=== PATIENT | female | born 1975 | race Caucasian/White ===

== ENCOUNTER 2018-07-18 22:00 | Emergency (ER) | payer MEDICARE, MEDICAID ==
[~2018-07-18] VITALS: Ht 165.1 cm; Wt 103.9 kg
[~2018-07-18 22:00] MED LIST: CLON-528 PO; FLUT16SP2 BOTHNARES; GUAI120015 PO; HYDR-4383 PO; PSEU-259 PO
[2018-07-18 22:10] VITALS: BP 105/81
[2018-07-18] MEDS ORDERED: BACI28OI9 TP (22:44)
[2018-07-18] MEDS ORDERED: bacitracin 15gm ointment TP ONE (22:45)
== END 2018-07-18 22:59 | disposition home or self-care (01) ==
LOC: ER 22:01
DX: T21.21XA Burn of second degree of chest wall, initial encounter (principal); R62.50 Unspecified lack of expected normal physiological development in childhood; Z98.890 Other specified postprocedural states; Z95.0 Presence of cardiac pacemaker; Z88.2 Allergy status to sulfonamides; Z88.6 Allergy status to analgesic agent; Z88.5 Allergy status to narcotic agent; Z79.899 Other long term (current) drug therapy; X11.0XXA Contact with hot water in bath or tub, initial encounter; Y93.89 Activity, other specified; Y92.89 Other specified places as the place of occurrence of the external cause; Y99.9 Unspecified external cause status
CPT/HCPCS: 16020; 99284

== ENCOUNTER 2019-01-16 13:37 | Emergency (ER) | payer MEDICARE, MEDICAID ==
[~2019-01-16] VITALS: Ht 152.4 cm; Wt 98.7 kg
[~2019-01-16 13:37] MED LIST changes: +BACI28OI9 TP
[2019-01-16 14:01] VITALS: BP 156/93
[2019-01-16] MEDS ORDERED: CLIN300C70 PO (15:23)
[2019-01-16] MEDS ORDERED: IBUP-1984 PO (15:23)
[2019-01-16] MEDS ORDERED: ketorolac tromethamine 15mg/ml inj. IM ONE (15:25)
== END 2019-01-16 15:51 | disposition home or self-care (01) ==
LOC: ER 13:37
DX: K02.9 Dental caries, unspecified (principal); Z88.2 Allergy status to sulfonamides; Z88.6 Allergy status to analgesic agent; Z88.5 Allergy status to narcotic agent; Z79.2 Long term (current) use of antibiotics; Z79.899 Other long term (current) drug therapy; Z98.890 Other specified postprocedural states; Z95.0 Presence of cardiac pacemaker
CPT/HCPCS: 96372; 99283; J1885

== ENCOUNTER 2020-04-06 15:14 | Emergency (ER) | payer MEDICARE, MEDICAID ==
[~2020-04-06] VITALS: Ht 162.6 cm; Wt 105.0 kg
[2020-04-06 17:17] LABS: CLARITY,URINE CLOUDY (Clear); COLOR,URINE YELLOW (Yellow); GLUCOSE, URINE NEGATIVE (Neg); KETONES,URINE NEGATIVE (Neg); LEUKOCYTE ESTERASE ,URINE NEGATIVE (Neg); NITRITES, URINE NEGATIVE (Neg); OCCULT BLOOD,URINE TRACE-LYSED (Neg); PH,URINE 5.5 (4.8-8.0); PROTEIN,URINE NEGATIVE (Neg); UROBILINOGEN,URINE 0.2 E.U/dL (0.2-1.0)
[2020-04-06 17:18] LABS: UA COLLECTION TYPE CLN CATCH MIDSTREAM; URINE HCG NEGATIVE (NEG)
[2020-04-06 17:24] LABS: MUCUS STRANDS MANY /LPF (Neg); SQUAMOUS EPITHELIAL CELL,UR MANY /LPF (FEW)
[2020-04-06 17:28] LABS: BACTERIA,URINE FEW /HPF (Neg); RBC,URINE 0-2 /HPF (0-2); TRANSITIONAL EPI CELLS,URINE FEW /HPF; WBC,URINE 0-4 /HPF (0-4)
[2020-04-06] MEDS ORDERED: ketorolac trometh. 30mg/ml inj. IM ONE (17:35)
[2020-04-06] MEDS ORDERED: cyclobenzaprine 10mg tablet PO ONE (17:35)
[2020-04-06] MEDS ORDERED: CYCL-1 PO (17:36)
[2020-04-06 17:54] VITALS: BP 131/93
== END 2020-04-06 17:55 | disposition home or self-care (01) ==
LOC: ER 15:15
DX: S39.012A Strain of muscle, fascia and tendon of lower back, initial encounter (principal); E11.9 Type 2 diabetes mellitus without complications; G47.30 Sleep apnea, unspecified; Z86.69 Personal history of other diseases of the nervous system and sense organs; Z95.0 Presence of cardiac pacemaker; Z98.890 Other specified postprocedural states; Z88.2 Allergy status to sulfonamides; Z88.0 Allergy status to penicillin; Z88.8 Allergy status to other drugs, medicaments and biological substances; Z79.899 Other long term (current) drug therapy; X58.XXXA Exposure to other specified factors, initial encounter; Y93.89 Activity, other specified; Y92.89 Other specified places as the place of occurrence of the external cause; Y99.8 Other external cause status
CPT/HCPCS: 81001; 81025; 96372; 99283; J1885

== ENCOUNTER 2020-05-18 10:18 | Emergency (ER) | payer MEDICARE, MEDICAID ==
[~2020-05-18] VITALS: Ht 152.4 cm; Wt 102.7 kg
[~2020-05-18 10:18] MED LIST changes: +CYCL-1 PO
[2020-05-18 12:04] LABS: BASOPHILS # (AUTO) 0.1 X10'3 (0-0.2); BASOPHILS % (AUTO) 0.6 % (0-1); EOSINOPHILS # (AUTO) 0.1 X10'3 (0-0.9); EOSINOPHILS % (AUTO) 0.8 % (0-6); HEMATOCRIT 38.8 % (35.0-45.0); HEMOGLOBIN 12.8 g/dl (12.0-16.0); LYMPHOCYTES % (AUTO) 21.4 % (21-51); MEAN CORPUSCULAR HEMOGLOBIN 30.3 PG (27.0-31.0); MEAN CORPUSCULAR VOLUME 91.8 FL (78-98); MEAN PLATELET VOLUME 9.6 FL (7.4-10.4); MONOCYTES # (AUTO) 0.4 X10'3 (0-0.9); NEUTROPHILS # (AUTO) 6.9 X10'3 (1.8-7.7); NEUTROPHILS % (AUTO) 73.2 % (42-75); PLATELET COUNT 276 X10'3 (140-440); RED BLOOD COUNT 4.22 X10'6 (4.20-5.60); RED CELL DISTRIBUTION WIDTH 13.8 % (11.5-14.5); WHITE BLOOD COUNT 9.5 X10'3 (4.5-11.0)
[2020-05-18 12:21] LABS: ALANINE AMINOTRANSFERASE 27 U/L (12-78); ALBUMIN 3.5 G/DL (3.4-5.0); ALBUMIN/GLOBULIN RATIO 0.9 (1.1-1.5); ALKALINE PHOSPHATASE 89 IU/L (46-116); ANION GAP 8 (8-16); ASPARTATE AMINO TRANSFERASE 16 U/L (10-37); BILIRUBIN,TOTAL 0.2 MG/DL (0.1-1.0); BLOOD UREA NITROGEN 14 MG/DL (7-18); BUN/CREATININE RATIO 21.5 (6.6-38.0); CHLORIDE 106 MMOL/L (99-107); CREATININE 0.65 MG/DL (0.40-0.90); GLUCOSE 100 MG/DL (70-104); POTASSIUM 3.9 MMOL/L (3.5-5.1); SODIUM 143 MMOL/L (135-145); TOTAL CARBON DIOXIDE 29.5 MMOL/L (24-32); TOTAL PROTEIN 7.3 G/DL (6.4-8.2); eGFR > 90 ML/MIN
[2020-05-18 13:11] LABS: CLARITY,URINE CLOUDY (Clear); COLOR,URINE YELLOW (Yellow); GLUCOSE, URINE NEGATIVE (Neg); KETONES,URINE NEGATIVE (Neg); LEUKOCYTE ESTERASE ,URINE NEGATIVE (Neg); NITRITES, URINE NEGATIVE (Neg); OCCULT BLOOD,URINE NEGATIVE (Neg); PH,URINE 5.5 (4.8-8.0); PROTEIN,URINE TRACE mg/dl (Neg); UA COLLECTION TYPE STRAIGHT CATH; UROBILINOGEN,URINE 0.2 E.U/dL (0.2-1.0)
[2020-05-18 13:20] LABS: MUCUS STRANDS MANY /LPF (Neg); SQUAMOUS EPITHELIAL CELL,UR MANY /LPF (FEW)
[2020-05-18 13:21] LABS: BACTERIA,URINE FEW /HPF (Neg); RBC,URINE 0-2 /HPF (0-2); WBC CLUMPS,URINE FEW /HPF (NEGATIVE)
[2020-05-18] MEDS ORDERED: HYDR-4353 PO (13:43)
[2020-05-18] MEDS ORDERED: morphine 4 MG/ML inj SYRINge IM ONE (13:45)
[2020-05-18 14:16] VITALS: BP 116/53
== END 2020-05-18 14:18 | disposition home or self-care (01) ==
LOC: ER 10:19
DX: G89.29 Other chronic pain (principal); R10.2 Pelvic and perineal pain; R10.9 Unspecified abdominal pain; R30.0 Dysuria; I10 Essential (primary) hypertension; G47.30 Sleep apnea, unspecified; E11.9 Type 2 diabetes mellitus without complications; Z86.69 Personal history of other diseases of the nervous system and sense organs; Z98.890 Other specified postprocedural states; Z88.2 Allergy status to sulfonamides; Z88.6 Allergy status to analgesic agent; Z88.5 Allergy status to narcotic agent; Z79.899 Other long term (current) drug therapy
CPT/HCPCS: 36415; 80053; 81001; 85025; 87088; 96372; 99283; J2270

== ENCOUNTER 2021-07-19 10:30 | Day surgery (SDC) | payer MEDICARE, OTHER, MEDICAID ==
[2021-07-11 15:26] LABS: BASOPHILS % (AUTO) 0.2 % (0-1); EOSINOPHILS # (AUTO) 0.2 X10'3 (0-0.9); EOSINOPHILS % (AUTO) 1.4 % (0-6); LYMPHOCYTES # (AUTO) 2.4 X10'3 (1.1-4.8); LYMPHOCYTES % (AUTO) 20.6 % (21-51); MEAN CORPUSCULAR HEMOGLOBIN 30.5 PG (27.0-31.0); MEAN CORPUSCULAR HGB CONC 32.6 g/dL (33.0-36.5); MEAN CORPUSCULAR VOLUME 93.6 FL (78-98); MEAN PLATELET VOLUME 8.6 FL (7.4-10.4); MONOCYTES # (AUTO) 0.6 X10'3 (0-0.9); MONOCYTES % (AUTO) 5.3 % (2-12); NEUTROPHILS # (AUTO) 8.4 X10'3 (1.8-7.7); NEUTROPHILS % (AUTO) 72.5 % (42-75); PRE OP HEMATOCRIT 38.9 % (35.0-45.0); PRE OP HEMOGLOBIN 12.7 g/dL (12.0-16.0); PRE OP PLATELET COUNT 313 X10'3 (140-440); RED BLOOD COUNT 4.15 X10'6 (4.20-5.60); RED CELL DISTRIBUTION WIDTH 13.5 % (11.5-14.5)
[2021-07-11 15:37] LABS: CLARITY,URINE CLEAR (Clear); COLOR,URINE YELLOW (Yellow); GLUCOSE, URINE NEGATIVE (Neg); KETONES,URINE NEGATIVE (Neg); LEUKOCYTE ESTERASE ,URINE NEGATIVE (Neg); NITRITES, URINE NEGATIVE (Neg); OCCULT BLOOD,URINE NEGATIVE (Neg); PROTEIN,URINE NEGATIVE (Neg); UA COLLECTION TYPE CLN CATCH MIDSTREAM; UROBILINOGEN,URINE 0.2 E.U/dL (0.2-1.0)
[2021-07-11 15:47] LABS: HCG SERUM QL NEGATIVE
[2021-07-11 15:56] LABS: ALBUMIN 3.4 G/DL (3.4-5.0); ALBUMIN/GLOBULIN RATIO 0.8 (1.1-1.5); ALKALINE PHOSPHATASE 111 IU/L (46-116); BLOOD UREA NITROGEN 25 MG/DL (7-18); BUN/CREATININE RATIO 36.2 (6.6-38.0); CALCIUM 8.8 MG/DL (8.5-10.1); CHLORIDE 106 MMOL/L (99-107); CREATININE 0.69 MG/DL (0.40-0.90); PRE OP ALT 30 U/L (30-65); PRE OP ANION GAP 9 (8-16); PRE OP AST 15 U/L (10-37); PRE OP BILIRUB, TOTAL 0.2 MG/DL (0.0-1.0); PRE OP GLUCOSE 110 MG/DL (70-104); PRE OP SODIUM 142 MMOL/L (135-145); TOTAL CARBON DIOXIDE 26.7 MMOL/L (24-32); TOTAL PROTEIN 7.6 G/DL (6.4-8.2); eGFR > 90 ML/MIN
[~2021-07-19] VITALS: Ht 152.4 cm; Wt 92.5 kg
[2021-07-19] VITALS (20 sets, daily range): BP systolic 118–147; BP diastolic 75–102
[~2021-07-19 10:30] MED LIST changes: +ACET325T58 PO; +ALBU18HF2 INH; -BACI28OI9 TP; +BUPIVAcaine/PF 2.5 mg/ml (0.25%) 30ml vial ONE; +CARB100C9 PO; +CHOL100017 PO; -CLON-528 PO; -CYCL-1 PO; -FLUT16SP2 BOTHNARES; +GENTAMICIN IV ONE; -GUAI120015 PO; -HYDR-4383 PO; +HYDR28CR14 TOP; +HYDROcodone/acetaminophen 10/325mg tab PO PRN; +IBUP-1984 PO; +LEVE500T PO; +LIDOcaine 2% (20mg/ml) 5ml vial ONE; +LISI2.5T14 PO; +LORazepam 1 MG tablet PO PRN; +LORazepam 2 mg/ml vial IV PRN; +MELA10TA PO; +NORMAL SALINE IV ONE; +NORT25CA PO; +PANT20TA18 PO; -PSEU-259 PO; +TRAZ-256 PO; +ZALE10CA PO; +acetaminophen 1,000mg/100ml IV 100 ML IV ONE; +clindamycin phosphate 40gm vag cream ONE; +clindamycin-Cleocin 900mg/D5W 50 ML IV ONE; +dexamethasone sod phosphate 4mg/ml inj. ONE; +diphenhydrAMINE 50 mg/ml inj IV PRN; +epiNEPHrine 1 mg/ml inj ONE; +famotidine 20mg tablet PO ONE; +fentaNYL /PF 50mcg/ml 5ml ampule ONE; +fluoroscein sod 10% (100mg/ml) 5ml vial ONE; +glycopyrrolate 0.2mg/ml inj ONE; +ketorolac trometh. 30mg/ml inj. IV PRN; +magnesium hydroxide 30ml (MOM) UD suspension PO PRN; +meperidine/PF 25mg/ml syringe IV PRN; +midazolam 1 mg/ML 2ml injection ONE; +morphine 4 MG/ML inj SYRINge IV PRN; +neomy sulf/polymyxin B sulf. GU irrigation 1ml amp IR ONE; +neostigmine methylsulfate 1 MG/ML 10ml vial ONE; +normal saline 500ml IV soln 500 ML IV PRN; +ondansetron/PF 4mg/2ml inj IV PRN; +ondansetron/PF 4mg/2ml inj ONE; +proCHLORperazine 10 MG/2 ml inj IV PRN; +ringers solution, lacted 1,000 ML IV SCH; +rocuronium 10mg/ml inj IV ONE; +temazepam 15mg capsule PO PRN; +vasoPRESSIN 20 units/ml inj. ONE
[2021-07-19] MEDS: ringers solution, lacted 1,000 ML IV SCH ×2 (10:30→18:30)
--- NOTE | 2021-07-19 10:36 | NUR ---
Received from OR via BED, accompanied by Anesthesiologist DR. BABIN and report given by Anesthesiolgist AND OR NURSE. PT ARRIVED DROWSY ON 10L WITH MASK. 4 INCISION SITES GLUED SHUT WITH MINIMAL DRAINAGE. PHELAN CATHETER NOTED WITH YELLOW URINE. 20G IV TO LEFT AC RUNNING WITH LR AT 100ML/HR. VSS. NO ACUTE DISTRESS NOTED. Addendum: 07/19/21 at 1102 by Rae Moses RN Amended: Links added.
[2021-07-19] MEDS ORDERED: meperidine/PF 25mg/ml syringe ONE (10:38)
[2021-07-19] MEDS: morphine 2 MG/ML inj. syringe IV PRN ×2 (11:52→12:04)
--- NOTE | 2021-07-19 12:36 | NUR ---
Report called to receiving nurse. ALL QUESTIONS ANSWERED TO ACCEPTING RN. Transferred via BED, Belongings, CELL PHONE, GLASSES, AND CLOTHING SENT TO ROOM WITH PT. Special Issues communicated to receiving nurse. VSS. PT MET PACU D/C CRITERIA. INCISION SITES UNCHANGED. BED LOW, CALL LIGHT PRESENT AND 2 RAILS UP. NURSE AID PRESENT. Addendum: 07/19/21 at 1245 by Rae Moses RN Amended: Links added.
[2021-07-19] MEDS ORDERED: diphenhydrAMINE 25mg capsule PO ONE (17:00)
--- NOTE | 2021-07-19 17:01 | NUR ---
Called Ángel. Pt. c/o red itchy and tearful right eye. See new orders
[2021-07-19] MEDS ORDERED: ibuprofen tablet 400 MG TABLET PO PRN (17:25)
[2021-07-19] MEDS ORDERED: ondansetron 4mg rapidly disintigrating tab PO PRN (17:25)
[2021-07-19] MEDS ORDERED: hydrocortisone 1% cream 28gm TP PRN (17:30)
[2021-07-19] MEDS ORDERED: zolpidem 5mg tablet PO PRN (17:30)
[2021-07-19] MEDS ORDERED: albuterol 2.5 MG/3 ML nebule NEB PRN (17:35)
--- NOTE | 2021-07-19 18:35 | NUR ---
Gave report to Angie garcia RN.
[2021-07-19] MEDS ORDERED: traZODone 50mg tablet PO SCH (21:00)
[2021-07-19] MEDS: nortriptyline 25mg capsule PO SCH ×2 (21:00→23:29)
[2021-07-19] MEDS ORDERED: carbamazepine 100mg ER CAPSULE (12-hour) PO SCH (21:00)
[2021-07-19] MEDS ORDERED: Melatonin 3mg tablet PO SCH (21:00)
[2021-07-19] MEDS: metoclopramide 5 mg/ml inj IV PRN (22:10)
[2021-07-19] MEDS: levetiracetam 250mg tablet PO SCH (23:28)
[2021-07-19] MEDS: docusate sod 100mg capsule PO SCH (23:28)
--- NOTE | 2021-07-19 23:43 | NUR ---
Patients nortriptyline held. Patient stated she had the med in the am.
[2021-07-20] MEDS: HYDROcodone/acetaminophen 10/325mg tab PO PRN ×2 (02:21→08:43)
--- NOTE | 2021-07-20 05:56 | NUR ---
Pt. jose de jesus d/c @ 3659, Pt. due to void
[2021-07-20 07:36] LABS: BASOPHILS % (AUTO) 0.2 % (0-1); EOSINOPHILS % (AUTO) 0.3 % (0-6); HEMATOCRIT 35.2 % (35.0-45.0); HEMOGLOBIN 11.6 g/dl (12.0-16.0); LYMPHOCYTES # (AUTO) 1.5 X10'3 (1.1-4.8); LYMPHOCYTES % (AUTO) 11.2 % (21-51); MEAN CORPUSCULAR HEMOGLOBIN 30.9 PG (27.0-31.0); MEAN CORPUSCULAR VOLUME 93.7 FL (78-98); MEAN PLATELET VOLUME 9.1 FL (7.4-10.4); MONOCYTES # (AUTO) 0.9 X10'3 (0-0.9); MONOCYTES % (AUTO) 7.2 % (2-12); NEUTROPHILS # (AUTO) 10.5 X10'3 (1.8-7.7); NEUTROPHILS % (AUTO) 81.1 % (42-75); PLATELET COUNT 296 X10'3 (140-440); RED BLOOD COUNT 3.75 X10'6 (4.20-5.60); RED CELL DISTRIBUTION WIDTH 13.4 % (11.5-14.5); WHITE BLOOD COUNT 12.9 X10'3 (4.5-11.0)
[2021-07-20 07:50] LABS: ALBUMIN 2.8 G/DL (3.4-5.0); ANION GAP 8 (8-16); BLOOD UREA NITROGEN 15 MG/DL (7-18); BUN/CREATININE RATIO 27.3 (6.6-38.0); CALCIUM 8.2 MG/DL (8.5-10.1); CHLORIDE 105 MMOL/L (99-107); CREATININE 0.55 MG/DL (0.40-0.90); GLUCOSE 139 MG/DL (70-104); POTASSIUM 3.6 MMOL/L (3.5-5.1); SODIUM 140 MMOL/L (135-145); eGFR > 90 ML/MIN
[2021-07-20 08:00] VITALS: BP 112/68
[2021-07-20] MEDS ORDERED: lisinopril 2.5mg tablet PO SCH (08:00)
[2021-07-20] MEDS ORDERED: cholecalciferol (vitamin D3) 1,000 unit (25mcg) tablet PO SCH (08:00)
[2021-07-20] MEDS ORDERED: enoxaparin 40mg/0.4ml syringe SQ SCH (08:00)
[2021-07-20] MEDS ORDERED: pantoprazole 40mg Tablet.DR PO SCH (08:00)
[2021-07-20] MEDS: docusate sod 100mg capsule PO SCH (08:41)
[2021-07-20] MEDS: levetiracetam 250mg tablet PO SCH (08:41)
[2021-07-20] MEDS: metoclopramide 5 mg/ml inj IV PRN ×2 (08:44→09:19)
[2021-07-20 11:00] VITALS: BP 113/69
== END 2021-07-20 14:08 | disposition home or self-care (01) ==
LOC: PAS 10:30 → SUR 3N 10:30 → PAS 07-20 14:08
PROVIDERS: ATTEND Obstetrics & Gynecology Obstetrics
DX: N93.8 Other specified abnormal uterine and vaginal bleeding (principal); N85.8 Other specified noninflammatory disorders of uterus; N80.0 Endometriosis of uterus; N73.6 Female pelvic peritoneal adhesions (postinfective); J45.909 Unspecified asthma, uncomplicated; G47.33 Obstructive sleep apnea (adult) (pediatric); I10 Essential (primary) hypertension; G43.909 Migraine, unspecified, not intractable, without status migrainosus; K21.9 Gastro-esophageal reflux disease without esophagitis; E66.9 Obesity, unspecified; Z68.41 Body mass index [BMI] 40.0-44.9, adult; Z20.822 Contact with and (suspected) exposure to COVID-19; Z79.899 Other long term (current) drug therapy; Z88.2 Allergy status to sulfonamides; Z88.8 Allergy status to other drugs, medicaments and biological substances; Z98.890 Other specified postprocedural states
CPT/HCPCS: 36415; 58552; 71045; 80048; 80053; 81003; 82948; 84703; 85025; 86885; 86900; 86901; 87081; J0131; J0171; J1100; J1580; J1885; J2001; J2175; J2250; J2270; J2405; J2710; J2765; J3010; J3490; J7120; Q0163; U0003; U0005; Z7506; Z7508; Z7512; 88307; A4314; A4618; A7000; G0378; J1650

== ENCOUNTER 2021-11-18 18:22 | Emergency (ER) | payer MEDICARE, OTHER, MEDICAID ==
[~2021-11-18] VITALS: Ht 152.4 cm; Wt 94.5 kg
[~2021-11-18 18:22] MED LIST changes: -ACET325T58 PO; -BUPIVAcaine/PF 2.5 mg/ml (0.25%) 30ml vial ONE; -GENTAMICIN IV ONE; -HYDROcodone/acetaminophen 10/325mg tab PO PRN; -LIDOcaine 2% (20mg/ml) 5ml vial ONE; -LORazepam 1 MG tablet PO PRN; -LORazepam 2 mg/ml vial IV PRN; -NORMAL SALINE IV ONE; -acetaminophen 1,000mg/100ml IV 100 ML IV ONE; -clindamycin phosphate 40gm vag cream ONE; -clindamycin-Cleocin 900mg/D5W 50 ML IV ONE; -dexamethasone sod phosphate 4mg/ml inj. ONE; -diphenhydrAMINE 50 mg/ml inj IV PRN; -epiNEPHrine 1 mg/ml inj ONE; -famotidine 20mg tablet PO ONE; -fentaNYL /PF 50mcg/ml 5ml ampule ONE; -fluoroscein sod 10% (100mg/ml) 5ml vial ONE; -glycopyrrolate 0.2mg/ml inj ONE; -ketorolac trometh. 30mg/ml inj. IV PRN; -magnesium hydroxide 30ml (MOM) UD suspension PO PRN; -meperidine/PF 25mg/ml syringe IV PRN; -midazolam 1 mg/ML 2ml injection ONE; -morphine 4 MG/ML inj SYRINge IV PRN; -neomy sulf/polymyxin B sulf. GU irrigation 1ml amp IR ONE; -neostigmine methylsulfate 1 MG/ML 10ml vial ONE; -normal saline 500ml IV soln 500 ML IV PRN; -ondansetron/PF 4mg/2ml inj IV PRN; -ondansetron/PF 4mg/2ml inj ONE; -proCHLORperazine 10 MG/2 ml inj IV PRN; -ringers solution, lacted 1,000 ML IV SCH; -rocuronium 10mg/ml inj IV ONE; -temazepam 15mg capsule PO PRN; -vasoPRESSIN 20 units/ml inj. ONE
[2021-11-18 18:52] VITALS: BP 165/85
== END 2021-11-18 20:47 | disposition home or self-care (01) ==
LOC: ER 18:23
DX: L98.9 Disorder of the skin and subcutaneous tissue, unspecified (principal); N39.498 Other specified urinary incontinence; I10 Essential (primary) hypertension; G47.00 Insomnia, unspecified; E11.9 Type 2 diabetes mellitus without complications; G80.9 Cerebral palsy, unspecified; Z90.710 Acquired absence of both cervix and uterus; Z95.0 Presence of cardiac pacemaker; Z88.2 Allergy status to sulfonamides; Z88.6 Allergy status to analgesic agent; Z79.899 Other long term (current) drug therapy
CPT/HCPCS: 51702; 99282; 99284

== ENCOUNTER 2021-11-22 09:48 | Emergency (ER) | payer MEDICARE, OTHER, MEDICAID ==
[~2021-11-22] VITALS: Ht 152.4 cm; Wt 9.4 kg
--- NOTE | 2021-11-22 11:18 | NUR ---
dela cruz cath replaced with 16fr, leg bag attached. urinal provided.
== END 2021-11-22 11:15 | disposition home or self-care (01) ==
LOC: ER 09:49
DX: T83.031A Leakage of indwelling urethral catheter, initial encounter (principal); I10 Essential (primary) hypertension; E11.9 Type 2 diabetes mellitus without complications; Z86.69 Personal history of other diseases of the nervous system and sense organs; Z90.710 Acquired absence of both cervix and uterus; Z95.0 Presence of cardiac pacemaker; Z98.890 Other specified postprocedural states; Z88.2 Allergy status to sulfonamides; Z88.5 Allergy status to narcotic agent; Z88.8 Allergy status to other drugs, medicaments and biological substances; Z79.899 Other long term (current) drug therapy; Y84.6 Urinary catheterization as the cause of abnormal reaction of the patient, or of later complication, without mention of misadventure at the time of the procedure
CPT/HCPCS: 99281

== ENCOUNTER 2021-11-25 13:26 | Emergency (ER) | payer MEDICARE, OTHER, MEDICAID ==
[~2021-11-25] VITALS: Ht 152.4 cm; Wt 94.1 kg
[2021-11-25 13:32] VITALS: BP 124/69
[2021-11-25 14:36] LABS: CLARITY,URINE CLOUDY (Clear); COLOR,URINE YELLOW (Yellow); GLUCOSE, URINE NEGATIVE (Neg); KETONES,URINE NEGATIVE (Neg); LEUKOCYTE ESTERASE ,URINE TRACE (Neg); NITRITES, URINE POSITIVE (Neg); OCCULT BLOOD,URINE LARGE (Neg); PROTEIN,URINE 100 mg/dl (Neg); UROBILINOGEN,URINE 0.2 E.U/dL (0.2-1.0)
[2021-11-25 14:39] LABS: UA COLLECTION TYPE FOLEY CATH
[2021-11-25 14:40] LABS: BACTERIA,URINE 3+ /HPF (Neg); MUCUS STRANDS FEW /LPF (Neg); RBC,URINE TNTC /HPF (0-2); SQUAMOUS EPITHELIAL CELL,UR FEW /LPF (FEW)
[2021-11-25] MEDS ORDERED: LEVO500T90 PO (14:57)
== END 2021-11-25 15:30 | disposition home or self-care (01) ==
LOC: ER 13:27
DX: T83.031A Leakage of indwelling urethral catheter, initial encounter (principal); N39.0 Urinary tract infection, site not specified; R31.9 Hematuria, unspecified; I10 Essential (primary) hypertension; E11.9 Type 2 diabetes mellitus without complications; Z86.69 Personal history of other diseases of the nervous system and sense organs; Z90.710 Acquired absence of both cervix and uterus; Z95.0 Presence of cardiac pacemaker; Z98.890 Other specified postprocedural states; Z88.2 Allergy status to sulfonamides; Z88.5 Allergy status to narcotic agent; Z88.8 Allergy status to other drugs, medicaments and biological substances; Z79.2 Long term (current) use of antibiotics; Z79.899 Other long term (current) drug therapy; Y84.6 Urinary catheterization as the cause of abnormal reaction of the patient, or of later complication, without mention of misadventure at the time of the procedure
CPT/HCPCS: 81001; 87077; 87088; 87186; 99283

== ENCOUNTER 2021-12-30 14:26 | Emergency (ER) | payer MEDICARE, OTHER, MEDICAID ==
[~2021-12-30] VITALS: Ht 152.4 cm; Wt 96.4 kg
[2021-12-30] MEDS ORDERED: LIDOcaine 2% 10ml TOPICAL JELLY (Urojet) TP ONE (15:20)
[2021-12-30 15:53] VITALS: BP 130/79
== END 2021-12-30 15:54 | disposition home or self-care (01) ==
LOC: ER 14:26
DX: T83.098A Other mechanical complication of other urinary catheter, initial encounter (principal); G40.909 Epilepsy, unspecified, not intractable, without status epilepticus; I10 Essential (primary) hypertension; G47.30 Sleep apnea, unspecified; E11.9 Type 2 diabetes mellitus without complications; Z90.710 Acquired absence of both cervix and uterus; Z88.2 Allergy status to sulfonamides; Z88.8 Allergy status to other drugs, medicaments and biological substances; Z79.899 Other long term (current) drug therapy; Y84.6 Urinary catheterization as the cause of abnormal reaction of the patient, or of later complication, without mention of misadventure at the time of the procedure; Y92.89 Other specified places as the place of occurrence of the external cause
CPT/HCPCS: 51702; 99284

== ENCOUNTER 2022-01-02 13:41 | Emergency (ER) | payer MEDICARE, OTHER, MEDICAID ==
[~2022-01-02] VITALS: Ht 152.4 cm; Wt 96.4 kg
[2022-01-02 13:56] VITALS: BP 149/46
== END 2022-01-02 17:10 | disposition home or self-care (01) ==
LOC: ER 13:42
DX: T83.091A Other mechanical complication of indwelling urethral catheter, initial encounter (principal); I10 Essential (primary) hypertension; E11.9 Type 2 diabetes mellitus without complications; Z86.69 Personal history of other diseases of the nervous system and sense organs; Z90.710 Acquired absence of both cervix and uterus; Z95.0 Presence of cardiac pacemaker; Z98.890 Other specified postprocedural states; Z88.2 Allergy status to sulfonamides; Z88.5 Allergy status to narcotic agent; Z88.8 Allergy status to other drugs, medicaments and biological substances; Z79.899 Other long term (current) drug therapy; Y84.6 Urinary catheterization as the cause of abnormal reaction of the patient, or of later complication, without mention of misadventure at the time of the procedure
CPT/HCPCS: 99281

== ENCOUNTER 2022-02-08 19:21 | Emergency (ER) | payer MEDICARE, OTHER, MEDICAID ==
[~2022-02-08] VITALS: Ht 152.4 cm; Wt 95.3 kg
[2022-02-08 19:33] VITALS: BP 135/83
--- NOTE | 2022-02-08 20:41 | NUR ---
PHELAN CATH BAG SWITCHED
== END 2022-02-08 20:43 | disposition home or self-care (01) ==
LOC: ER 19:23
DX: T83.038A Leakage of other urinary catheter, initial encounter (principal); I10 Essential (primary) hypertension; G47.30 Sleep apnea, unspecified; Z90.710 Acquired absence of both cervix and uterus; E11.9 Type 2 diabetes mellitus without complications; Z95.0 Presence of cardiac pacemaker; Z88.2 Allergy status to sulfonamides; Z88.8 Allergy status to other drugs, medicaments and biological substances; Z79.899 Other long term (current) drug therapy; Y92.89 Other specified places as the place of occurrence of the external cause
CPT/HCPCS: 99281

== ENCOUNTER 2024-02-06 16:21 | Emergency (ER) | payer MEDICARE, MEDICAID ==
[~2024-02-06] VITALS: Ht 160 cm; Wt 99.0 kg
[~2024-02-06 16:21] MED LIST changes: -MELA10TA PO; +MELATONIN10 MG PO; +clindamycin 300mg/D5W 50mL 50 ML IV ONE
[2024-02-06 18:25] LABS: APTT 23 SECONDS (22-32); BASOPHILS # (AUTO) 0.1 X10'3 (0-0.2); BASOPHILS % (AUTO) 0.7 % (0-1); EOSINOPHILS # (AUTO) 0.2 X10'3 (0-0.9); EOSINOPHILS % (AUTO) 1.6 % (0-6); HEMATOCRIT 39.4 % (35.0-45.0); HEMOGLOBIN 13.1 g/dl (12.0-16.0); LYMPHOCYTES # (AUTO) 2.4 X10'3 (1.1-4.8); LYMPHOCYTES % (AUTO) 24.7 % (21-51); MEAN CORPUSCULAR HEMOGLOBIN 30.7 PG (27.0-31.0); MEAN CORPUSCULAR HGB CONC 33.3 g/dL (33.0-36.5); MEAN CORPUSCULAR VOLUME 92.1 FL (78-98); MEAN PLATELET VOLUME 9.4 FL (7.4-10.4); MONOCYTES # (AUTO) 0.4 X10'3 (0-0.9); MONOCYTES % (AUTO) 4.1 % (2-12); NEUTROPHILS # (AUTO) 6.7 X10'3 (1.8-7.7); NEUTROPHILS % (AUTO) 68.9 % (42-75); PLATELET COUNT 289 X10'3 (140-440); PROTHROMBIN TIME 10.3 SECONDS (9.0-12.0); RED BLOOD COUNT 4.28 X10'6 (4.20-5.60); WHITE BLOOD COUNT 9.8 X10'3 (4.5-11.0)
[2024-02-06 18:56] LABS: ALANINE AMINOTRANSFERASE 32 U/L (12-78); BILIRUBIN,TOTAL 0.2 MG/DL (0.1-1.0); C-REACTIVE PROTEIN 3.21 MG/DL (0.0-0.5); CHLORIDE 103 MMOL/L (99-107); POTASSIUM 3.7 MMOL/L (3.5-5.1); SODIUM 140 MMOL/L (135-145); eGFR > 90 ML/MIN
[2024-02-06 19:37] LABS: ALBUMIN 3.6 G/DL (3.4-5.0); ALBUMIN/GLOBULIN RATIO 0.8 (1.1-1.5); ALKALINE PHOSPHATASE 142 IU/L (46-116); ANION GAP 10 (8-16); ASPARTATE AMINO TRANSFERASE 13 U/L (10-37); BLOOD UREA NITROGEN 17 MG/DL (7-18); BUN/CREATININE RATIO 28.3 (10.0-20.0); CALCIUM 9.4 MG/DL (8.5-10.1); GLUCOSE 114 MG/DL (70-104); PRO BRAIN NATRIURETIC PEPTIDE 54 PG/ML (0-125); TOTAL CARBON DIOXIDE 26.6 MMOL/L (24-32); TOTAL PROTEIN 8.1 G/DL (6.4-8.2); eCRCL 93 ML/MIN
[2024-02-06 19:40] LABS: URIC ACID 3.8 MG/DL (2.5-6.2)
[2024-02-06] MEDS ORDERED: CefTRIAXone/D5W-Rocephin 1gm 50 ML IV ONE (21:20)
[2024-02-06] MEDS ORDERED: CLIN300C54 PO (21:20)
[2024-02-06] MEDS ORDERED: HYDR-3965 PO (21:20)
[2024-02-06] MEDS ORDERED: ketorolac tromethamine 15mg/ml inj. IV ONE (21:25)
[2024-02-06] MEDS ORDERED: clindamycin 300mg/D5W 50mL 50 ML IV ONE (21:30)
[2024-02-06] MEDS: HYDROcodone/acetaminophen 5mg/325mg tablet PO ONE (22:12)
[2024-02-06] MEDS: clindamycin 150mg capsule PO ONE (22:25)
[2024-02-06] MEDS: ketorolac tromethamine 15mg/ml inj. IM ONE (22:26)
[2024-02-06] MEDS: CefTRIAXone 1000mg IM Kit (w/lidocaine diluent) IM ONE (22:27)
[2024-02-06 23:07] VITALS: BP 144/90; PULSE 82; RESP 16; TEMP 98.1; O2SAT 97
== END 2024-02-06 23:09 | disposition home or self-care (01) ==
LOC: ER 16:21
DX: L03.115 Cellulitis of right lower limb (principal); M25.561 Pain in right knee; I10 Essential (primary) hypertension; E11.9 Type 2 diabetes mellitus without complications; R79.1 Abnormal coagulation profile; Z88.2 Allergy status to sulfonamides; Z88.5 Allergy status to narcotic agent; Z88.6 Allergy status to analgesic agent; Z79.899 Other long term (current) drug therapy; Z79.2 Long term (current) use of antibiotics; Z90.710 Acquired absence of both cervix and uterus
CPT/HCPCS: 36415; 73564; 73700; 80053; 83605; 83880; 84145; 84550; 85025; 85610; 85651; 85730; 86140; 87040; 96372; 99285; J0696; J1885; 99291